=== PATIENT | female | born 1960 | race Caucasian/White ===

== ENCOUNTER 2016-09-26 07:54 | Day surgery (SDC) | payer OTHER ==
[2016-09-24 09:11] LABS: BLOOD UREA NITROGEN 24 mg/dL (7-18)
[~2016-09-26] VITALS: Ht 172.7 cm; Wt 72.0 kg
[~2016-09-26 07:54] MED LIST: GABA100C8 PO
[2016-09-26 08:17] VITALS: BP 113/74
[2016-09-26] MEDS ORDERED: LACTATED RINGERS 1,000 ML IV SCH (08:22)
[2016-09-26] MEDS ORDERED: FENTANYL PF 250 MCG/5ML ONE (09:44)
[2016-09-26] MEDS ORDERED: MIDAZOLAM 1 MG/ML, 2ML ONE (09:44)
[2016-09-26] MEDS ORDERED: BUPIVACAINE/PF-EPI 0.5% 1:200K ONE (10:03)
[2016-09-26] MEDS ORDERED: THROMBIN 5,000 UNIT VIAL TP ONE (10:04)
[2016-09-26] MEDS ORDERED: BACITRACIN 50,000 UNIT ONE (10:04)
[2016-09-26] MEDS ORDERED: ROCURONIUM 10 MG/ML ONE ×2 (10:24)
[2016-09-26] MEDS ORDERED: DEXAMETHASONE 4 MG/ML, 5ML ONE (10:24)
[2016-09-26] MEDS ORDERED: PROPOFOL 10 MG/ML, 20ML ONE (10:24)
[2016-09-26] MEDS ORDERED: GLYCOPYRROLATE 0.2MG/1ML ONE (10:24)
[2016-09-26] MEDS ORDERED: CEFAZOLIN 1,000 MG ONE (10:24)
[2016-09-26] MEDS ORDERED: SUCCINYLCHOLINE 20 MG/ML, 10ML ONE (10:24)
[2016-09-26] MEDS ORDERED: NEOSTIGMINE 1 MG/ML, 10ML ONE (10:24)
[2016-09-26] MEDS ORDERED: ONDANSETRON 2MG/ML, 2ML ONE (10:24)
[2016-09-26] MEDS ORDERED: MEPERIDINE/PF 25MG/0.5ML IVPush PRN (11:30)
[2016-09-26] MEDS ORDERED: ONDANSETRON 2MG/ML, 2ML IVPush PRN (11:30)
[2016-09-26] MEDS ORDERED: MIDAZOLAM 1 MG/ML, 2ML IV PRN (11:30)
[2016-09-26] MEDS ORDERED: PROMETHAZINE 25 MG/ML, 1ML IV PRN (11:30)
[2016-09-26] MEDS ORDERED: OXYcodone 5 MG/5 ML ORAL.SOL UDC PO PRN (11:30)
[2016-09-26] MEDS ORDERED: EPHEDRINE 50 MG/ML, 1ML IVPush PRN (11:30)
[2016-09-26] MEDS ORDERED: ACETAMINOPHEN 325 MG TABLET PO PRN (11:30)
[2016-09-26] MEDS ORDERED: ALBUTEROL SULFATE 2.5 MG/3 ML NPPB PRN (11:30)
[2016-09-26] MEDS ORDERED: METOPROLOL 1 MG/ML, 5ML IV PRN (11:30)
[2016-09-26] MEDS ORDERED: hydrALAzine 20 MG/ML, 1ML IV PRN (11:30)
[2016-09-26] MEDS ORDERED: LABETALOL 5MG/ML, 20ML IV PRN (11:30)
[2016-09-26] MEDS ORDERED: FENTANYL PF 100 MCG/2ML ONE ×2 (12:14→12:46)
[2016-09-26] MEDS ORDERED: OXYcodone 5 MG/5 ML ORAL.SOL UDC ONE (12:14)
[2016-09-26] MEDS: FENTANYL PF 100 MCG/2ML IV PRN ×2 (12:17→12:28)
[2016-09-26] MEDS ORDERED: HYDROmorphone 2 MG/ML, 1ML ONE (12:18)
[2016-09-26] MEDS: HYDROmorphone 1 MG/ML, 1ML IV PRN ×2 (12:21→12:34)
[2016-09-26] MEDS ORDERED: OXYcodone/APAP 10/325MG TABLET ONE (16:42)
[2016-09-26] MEDS ORDERED: OXYcodone/APAP 10/325MG TABLET PO PRN (17:00)
== END 2016-09-26 16:50 | disposition home or self-care (01) ==
LOC: OUT 07:54
PROVIDERS: ATTEND Neurological Surgery
DX: M51.17 Intervertebral disc disorders with radiculopathy, lumbosacral region (principal); M48.06 Spinal stenosis, lumbar region
CPT/HCPCS: 36415; 63030; 63056; 72100; 80048; 85025; 85610; 85730; 93005; J0330; J0690; J1100; J1170; J2250; J2405; J2704; J2710; J3010; J7120; J3490

== ENCOUNTER → 2016-11-07 | Outpatient (CLI) | payer OTHER ==
[~2016-11-07] MED LIST changes: +GABA-826 PO; -GABA100C8 PO; +GADOBUTROL 7.5 MMOL/7.5 ML PFS ONE
== END | disposition home or self-care (01) ==
LOC: CFH 15:01
PROVIDERS: ATTEND Neurological Surgery
DX: M47.896 Other spondylosis, lumbar region (principal); M48.07 Spinal stenosis, lumbosacral region; G96.19 Other disorders of meninges, not elsewhere classified; M79.605 Pain in left leg; R20.0 Anesthesia of skin
CPT/HCPCS: 72158; A9585

== ENCOUNTER → 2017-10-21 | Outpatient (CLI) | payer OTHER | END | disposition home or self-care (01) | LOC: CFH 13:57 | PROVIDERS: ATTEND Neurological Surgery | DX: M51.36 Other intervertebral disc degeneration, lumbar region (principal); M51.26 Other intervertebral disc displacement, lumbar region | CPT/HCPCS: 72110; 72158; A9585 ==

== ENCOUNTER → 2017-11-20 | Outpatient (CLI) | payer OTHER ==
[~2017-11-20] MED LIST changes: +BIOT10005 PEG; +BIOT1TAB12 PO; +CHOL10002 PO; -GADOBUTROL 7.5 MMOL/7.5 ML PFS ONE; +NAPR220C2 PO; +[UNRECOGNIZED DRUG - OTHER] PO
[2017-11-20 10:31] LABS: BASOPHILS # (AUTO) 0.04 x10^3/uL (0-0.1); BASOPHILS % (AUTO) 1 % (0-1); EOSINOPHILS # (AUTO) 0.51 x10^3/uL (0-0.4); EOSINOPHILS % (AUTO) 6 % (1-7); LYMPHOCYTES # (AUTO) 1.95 x10^3/uL (1-3.4); LYMPHOCYTES % (AUTO) 24 % (22-44); MD NO; MEAN CORPUSCULAR HEMOGLOBIN 29.7 pg (27.0-34.8); MEAN CORPUSCULAR HGB CONC 33.3 g/dL (32.4-35.8); MEAN CORPUSCULAR VOLUME 89.2 fL (80-100); MEAN PLATELET VOLUME 7.9 fL (7.4-10.4); MONOCYTES # (AUTO) 0.62 x10^3/uL (0.2-0.8); MONOCYTES % (AUTO) 8 % (2-9); NEUTROPHILS # (AUTO) 4.89 x10^3/uL (1.8-6.8); NEUTROPHILS % (AUTO) 61 % (42-75); PLATELET COUNT 261 x10^3/uL (130-400); RED BLOOD COUNT 4.38 x10^6/uL (3.82-5.3); RED CELL DISTRIBUTION WIDTH 13.7 % (9.6-15.2)
[2017-11-20 10:40] LABS: INTERNATIONAL NORMALIZED RATIO 0.96 (0.93-1.1)
[2017-11-20 10:41] LABS: ANION GAP 4 mmol/L (5-15); CALCIUM 9.6 mg/dL (8.5-10.1); CHLORIDE 107 mmol/L (98-107)
== END | disposition home or self-care (01) ==
LOC: STAR 09:40
PROVIDERS: ATTEND Neurological Surgery
DX: Z01.818 Encounter for other preprocedural examination (principal); M48.062 Spinal stenosis, lumbar region with neurogenic claudication; R00.1 Bradycardia, unspecified
CPT/HCPCS: 36415; 71046; 80048; 85025; 85610; 85730; 93005

== ENCOUNTER 2017-12-08 05:40 | Inpatient (IN) | payer OTHER ==
[~2017-12-08] VITALS: Ht 172.7 cm; Wt 73.8 kg
[2017-12-08] MEDS ORDERED: LACTATED RINGERS 1,000 ML IV SCH (06:32)
[2017-12-08] MEDS ORDERED: BACITRACIN 50,000 UNIT ONE (06:58)
[2017-12-08] MEDS ORDERED: THROMBIN 5,000 UNIT VIAL TP ONE (06:58)
[2017-12-08] MEDS ORDERED: VANCOMYCIN 500 MG ONE (06:58)
[2017-12-08] MEDS ORDERED: BUPIVACAINE/PF-EPI 0.5% 1:200K ONE (06:58)
[2017-12-08] MEDS ORDERED: MIDAZOLAM 1 MG/ML, 2ML ONE (07:12)
[2017-12-08] MEDS ORDERED: FENTANYL PF 100 MCG/2ML ONE ×2 (07:12→10:25)
[2017-12-08] MEDS ORDERED: GLYCOPYRROLATE 0.2MG/1ML, 5ML ONE (07:25)
[2017-12-08] MEDS ORDERED: SUCCINYLCHOLINE 20 MG/ML, 10ML ONE (07:25)
[2017-12-08] MEDS ORDERED: PROPOFOL 10 MG/ML, 20ML ONE (07:25)
[2017-12-08] MEDS ORDERED: CEFAZOLIN 1,000 MG ONE (07:25)
[2017-12-08] MEDS ORDERED: NEOSTIGMINE 1 MG/ML, 10ML ONE (07:25)
[2017-12-08] MEDS ORDERED: DEXAMETHASONE 4 MG/ML, 1ML ONE (07:25)
[2017-12-08] MEDS ORDERED: ROCURONIUM 10MG/ML,5ML ONE (07:25)
[2017-12-08] MEDS ORDERED: ACETAMINOPHEN 500 MG TABLET PO ONE (07:30)
[2017-12-08] MEDS ORDERED: GABAPENTIN 300 MG CAPSULE PO ONE (07:30)
[2017-12-08] MEDS ORDERED: OXYcodone IR 5MG TABLET PO ONE (07:30)
[2017-12-08] MEDS ORDERED: DIAZEPAM 5 MG TABLET PO ONE (07:30)
[2017-12-08] MEDS ORDERED: SCOPOLAMINE PATCH, 1.5MG PATCH.TD72 TD ONE (07:30)
[2017-12-08] MEDS ORDERED: FAMOTIDINE 20 MG TABLET PO ONE (07:30)
[2017-12-08] MEDS ORDERED: ONDANSETRON 2MG/ML, 2ML IVPush ONE (07:30)
[2017-12-08] MEDS ORDERED: LABETALOL 5MG/ML, 20ML IV PRN (08:30)
[2017-12-08] MEDS ORDERED: OXYcodone 5 MG/5 ML ORAL.SOL UDC PO PRN (08:30)
[2017-12-08] MEDS ORDERED: HYDROcodone/APAP 7.5-325MG/15ML UDC PO PRN (08:30)
[2017-12-08] MEDS ORDERED: hydrALAzine 20 MG/ML, 1ML IV PRN (08:30)
[2017-12-08] MEDS ORDERED: ALBUTEROL SULFATE 2.5 MG/3 ML NPPB PRN (08:30)
[2017-12-08] MEDS ORDERED: EPHEDRINE 50 MG/ML, 1ML IVPush PRN (08:30)
[2017-12-08] MEDS ORDERED: ONDANSETRON 2MG/ML, 2ML IV PRN ×2 (08:30→13:00)
[2017-12-08] MEDS ORDERED: MIDAZOLAM 1 MG/ML, 2ML IV PRN (08:30)
[2017-12-08] MEDS ORDERED: PROMETHAZINE 25 MG/ML, 1ML IV PRN (08:30)
[2017-12-08] MEDS ORDERED: MEPERIDINE/PF 25MG/0.5ML IVPush PRN (08:30)
[2017-12-08] MEDS ORDERED: HYDROmorphone 2 MG/ML, 1ML ONE (10:25)
[2017-12-08] MEDS: FENTANYL PF 100 MCG/2ML IV PRN ×3 (10:27→10:40)
[2017-12-08] MEDS: HYDROmorphone 1 MG/ML, 1ML IV PRN ×2 (10:55→11:15)
[2017-12-08] MEDS ORDERED: OXYcodone 5 MG/5 ML ORAL.SOL UDC ONE (11:03)
[2017-12-08] MEDS ORDERED: DIAZEPAM 5 MG/ML, 2ML IVPush PRN (11:30)
[2017-12-08 12:00] VITALS: BP 107/69
[2017-12-08 12:15] VITALS: BP 115/70
[2017-12-08] MEDS ORDERED: DIAZEPAM 5 MG TABLET ONE (12:56)
[2017-12-08] MEDS ORDERED: PROMETHAZINE 25 MG/ML, 1ML IM PRN (13:00)
[2017-12-08] MEDS ORDERED: DIAZEPAM 5 MG/ML, 2ML IV PRN (13:00)
[2017-12-08] MEDS ORDERED: METHOCARBAMOL 750 MG TABLET PO PRN (13:00)
[2017-12-08] MEDS ORDERED: ACETAMINOPHEN 650 MG SUPP PR PRN (13:00)
[2017-12-08] MEDS ORDERED: DIPHENHYDRAMINE 50 MG CAPSULE PO PRN (13:00)
[2017-12-08] MEDS ORDERED: ACETAMINOPHEN 325 MG TABLET PO PRN (13:00)
[2017-12-08] MEDS ORDERED: BISACODYL 10 MG SUPP PR PRN (13:00)
[2017-12-08] MEDS ORDERED: MAGNESIUM HYDROXIDE 8%, 30ML UDC PO PRN (13:00)
[2017-12-08] MEDS ORDERED: HYDROmorphone 2 MG/ML, 1ML IM PRN (13:00)
[2017-12-08] MEDS ORDERED: HYDROmorphone 2MG TABLET PO PRN (13:00)
[2017-12-08] MEDS ORDERED: DIPHENHYDRAMINE 50 MG/ML, 1ML IVPush PRN (13:00)
[2017-12-08] MEDS ORDERED: DIPHENHYDRAMINE 50 MG/ML, 1ML IM PRN (13:00)
[2017-12-08] MEDS ORDERED: OXYcodone/APAP 5/325MG TABLET PO PRN (13:00)
[2017-12-08] MEDS: DIAZEPAM 5 MG TABLET PO PRN ×2 (13:13→23:07)
[2017-12-08] MEDS: CEFAZOLIN PMX 1GM/50ML 50 ML IVPB SCH (15:58)
[2017-12-08] MEDS: NS + 20MEQ KCL 1,000 ML IV SCH (15:58)
[2017-12-08 19:00] VITALS: BP 139/93
[2017-12-08] MEDS ORDERED: ZOLPIDEM 5MG TABLET PO PRN (21:00)
[2017-12-08 23:42] VITALS: BP 107/66
[2017-12-09] MEDS: CEFAZOLIN PMX 1GM/50ML 50 ML IVPB SCH (00:04)
[2017-12-09] MEDS: NS + 20MEQ KCL 1,000 ML IV SCH ×2 (01:30→13:23)
[2017-12-09 03:21] VITALS: BP 100/64
[2017-12-09 05:46] LABS: BASOPHILS # (AUTO) 0.03 x10^3/uL (0-0.1); BASOPHILS % (AUTO) 0 % (0-1); EOSINOPHILS # (AUTO) 0.05 x10^3/uL (0-0.4); EOSINOPHILS % (AUTO) 1 % (1-7); LYMPHOCYTES # (AUTO) 2.06 x10^3/uL (1-3.4); LYMPHOCYTES % (AUTO) 18 % (22-44); MD NO; MEAN CORPUSCULAR HEMOGLOBIN 29.7 pg (27.0-34.8); MEAN CORPUSCULAR HGB CONC 33.2 g/dL (32.4-35.8); MEAN CORPUSCULAR VOLUME 89.5 fL (80-100); MEAN PLATELET VOLUME 7.8 fL (7.4-10.4); MONOCYTES # (AUTO) 0.96 x10^3/uL (0.2-0.8); MONOCYTES % (AUTO) 8 % (2-9); NEUTROPHILS # (AUTO) 8.64 x10^3/uL (1.8-6.8); NEUTROPHILS % (AUTO) 74 % (42-75); PLATELET COUNT 213 x10^3/uL (130-400); RED CELL DISTRIBUTION WIDTH 13.8 % (9.6-15.2)
[2017-12-09 06:19] LABS: ANION GAP 4 mmol/L (5-15); CALCIUM 8.6 mg/dL (8.5-10.1); CHLORIDE 107 mmol/L (98-107); CREATININE 0.71 mg/dL (0.55-1.02)
[2017-12-09 06:38] VITALS: BP 99/65
[2017-12-09] MEDS ORDERED: METH750T87 PO ×2 (08:16→17:29)
[2017-12-09] MEDS ORDERED: SENNA/DOCUSATE TABLET PO SCH (09:00)
[2017-12-09] MEDS ORDERED: CHOLECALCIFEROL 1,000 UNIT TABLET PO SCH (09:00)
[2017-12-09] MEDS: OXYcodone/APAP 10/325MG TABLET PO PRN ×2 (10:45→15:13)
[2017-12-09 11:59] VITALS: BP 106/75
[2017-12-09] MEDS ORDERED: OXYC-307 PO (17:26)
[2017-12-09 17:55] VITALS: BP 97/55
== END 2017-12-09 18:45 | disposition home or self-care (01) | DRG 460 ==
LOC: ORIP 05:40 → 4NOR 11:55
PROVIDERS: ADMIT Neurological Surgery; ATTEND Neurological Surgery
PROC: 01NB0ZZ Release Lumbar Nerve, Open Approach (ICD-10-PCS; 2017-12-08)
PROC: 0SB20ZZ Excision of Lumbar Vertebral Disc, Open Approach (ICD-10-PCS; 2017-12-08)
PROC: 01NR0ZZ Release Sacral Nerve, Open Approach (ICD-10-PCS; 2017-12-08)
PROC: 0SG30AJ Fusion of Lumbosacral Joint with Interbody Fusion Device, Posterior Approach, Anterior Column, Open Approach (ICD-10-PCS; principal; 2017-12-08 07:30)
DX: M48.07 Spinal stenosis, lumbosacral region (principal); M54.17 Radiculopathy, lumbosacral region
CPT/HCPCS: 36415; 72100; J3490; 80048; 85025; C1713; J0690; J1100; J1170; J2250; J2270; J2405; J2704; J2710; J3010; J3360; J3370; J3480; C1762; J0330; J7120

== ENCOUNTER → 2018-07-29 | Outpatient (CLI) | payer OTHER ==
[~2018-07-29] MED LIST changes: +METH750T87 PO; +OXYC-307 PO
== END | disposition home or self-care (01) ==
LOC: CFH 13:59
PROVIDERS: ATTEND Internal Medicine
DX: Z12.31 Encounter for screening mammogram for malignant neoplasm of breast (principal)
CPT/HCPCS: 77067

== ENCOUNTER → 2018-10-05 | Outpatient (CLI) | payer OTHER ==
[~2018-10-05] MED LIST changes: +FAMO-79 PO
[2018-10-05 09:43] LABS: CHOL/HDL RATIO 3.3; LDL/HDL RATIO 2.1 (0.5-3.0)
== END | disposition home or self-care (01) ==
LOC: LAB 09:15
PROVIDERS: ATTEND Internal Medicine
DX: K21.9 Gastro-esophageal reflux disease without esophagitis (principal)
CPT/HCPCS: 36415; 80053; 80061; 81003; 85025; 87081

== ENCOUNTER → 2018-10-05 | Outpatient (CLI) | payer OTHER | END | disposition home or self-care (01) | LOC: STAR 08:19 | PROVIDERS: ATTEND Orthopaedic Surgery Adult Reconstructive Orthopaedic Surgery | DX: Z01.818 Encounter for other preprocedural examination (principal); M25.552 Pain in left hip; M16.11 Unilateral primary osteoarthritis, right hip | CPT/HCPCS: 36415; 87806; 93005; G0475 ==

== ENCOUNTER 2018-10-22 10:29 | Inpatient (IN) | payer OTHER ==
[~2018-10-22] VITALS: Ht 172.7 cm; Wt 77.1 kg
[~2018-10-22 10:29] MED LIST changes: +EPINEPHRINE 1 MG/ML, 1ML ONE; +KETOROLAC 60 MG/2 ML ONE; +ROPIvacaine/PF 0.5%, 30 ML ONE; +SODIUM CHLORIDE 0.9% 50 ML ONE; +TRANEXAMIC ACID 100 MG/ML, 10ML ONE; +VANCOMYCIN 1,000 MG ONE
[2018-10-22] MEDS ORDERED: LACTATED RINGERS 1,000 ML IV SCH (11:03)
[2018-10-22 11:12] VITALS: BP 125/79
[2018-10-22] MEDS ORDERED: GABAPENTIN 300 MG CAPSULE PO ONE (11:30)
[2018-10-22] MEDS ORDERED: ACETAMINOPHEN 500 MG TABLET PO ONE (11:30)
[2018-10-22] MEDS ORDERED: MIDAZOLAM 1 MG/ML, 2ML ONE (11:56)
[2018-10-22] MEDS ORDERED: FENTANYL PF 250 MCG/5ML ONE (11:56)
[2018-10-22] MEDS ORDERED: MAGNESIUM HYDROXIDE 8%, 30ML UDC PO PRN (12:30)
[2018-10-22] MEDS ORDERED: HYDROcodone/APAP 5/325 TABLET PO PRN (12:30)
[2018-10-22] MEDS ORDERED: DIPHENHYDRAMINE 50 MG CAPSULE PO PRN (12:30)
[2018-10-22] MEDS ORDERED: SCOPOLAMINE PATCH, 1.5MG PATCH.TD72 TD ONE (12:30)
[2018-10-22] MEDS ORDERED: ZOLPIDEM 5MG TABLET PO PRN (12:30)
[2018-10-22] MEDS ORDERED: SENNA/DOCUSATE TABLET PO PRN (12:30)
[2018-10-22] MEDS ORDERED: ONDANSETRON 2MG/ML, 2ML IV PRN ×2 (12:30→14:00)
[2018-10-22] MEDS ORDERED: ONDANSETRON 4 MG TABLET PO PRN (12:30)
[2018-10-22] MEDS ORDERED: BISACODYL 10 MG SUPP PR PRN (12:30)
[2018-10-22] MEDS ORDERED: PROPOFOL 50 ML ONE ×2 (12:54→14:43)
[2018-10-22] MEDS ORDERED: EPHEDRINE 50 MG/ML, 1ML ONE (13:19)
[2018-10-22] MEDS ORDERED: VANCOMYCIN 1,000 MG ONE (13:49)
[2018-10-22] MEDS ORDERED: PROMETHAZINE 25 MG/ML, 1ML IV PRN (14:00)
[2018-10-22] MEDS ORDERED: SCOPOLAMINE PATCH, 1.5MG PATCH.TD72 TD PRN (14:00)
[2018-10-22] MEDS ORDERED: METOPROLOL 1 MG/ML, 5ML IV PRN (14:00)
[2018-10-22] MEDS ORDERED: hydrALAzine 20 MG/ML, 1ML IV PRN (14:00)
[2018-10-22] MEDS ORDERED: MEPERIDINE/PF 25MG/0.5ML IVPush PRN (14:00)
[2018-10-22] MEDS ORDERED: DIAZEPAM 5 MG/ML, 2ML IVPush PRN (14:00)
[2018-10-22] MEDS ORDERED: ALBUTEROL/IPRATROPIUM 2.5MG/0.5MG, 3 ML NPPB PRN (14:00)
[2018-10-22] MEDS ORDERED: OXYcodone 5 MG/5 ML ORAL.SOL UDC PO PRN (14:00)
[2018-10-22] MEDS ORDERED: MIDAZOLAM 1 MG/ML, 2ML IV PRN (14:00)
[2018-10-22] MEDS ORDERED: NEOSTIGMINE 1 MG/ML, 10ML ONE (14:10)
[2018-10-22] MEDS ORDERED: GLYCOPYRROLATE 0.2MG/1ML, 5ML ONE (14:10)
[2018-10-22] MEDS ORDERED: CEFAZOLIN 1,000 MG ONE (14:10)
[2018-10-22] MEDS ORDERED: PROPOFOL 10 MG/ML, 20ML ONE (14:10)
[2018-10-22] MEDS ORDERED: ONDANSETRON 2MG/ML, 2ML ONE (14:10)
[2018-10-22] MEDS ORDERED: ROCURONIUM 10MG/ML,5ML ONE (14:10)
[2018-10-22] MEDS ORDERED: DEXAMETHASONE 4 MG/ML, 1ML ONE (14:10)
[2018-10-22] MEDS ORDERED: HYDROmorphone 2 MG/ML, 1ML ONE (15:32)
[2018-10-22] MEDS ORDERED: FENTANYL PF 100 MCG/2ML ONE (15:32)
[2018-10-22] MEDS: FENTANYL PF 100 MCG/2ML IV PRN ×2 (15:32→15:56)
[2018-10-22] MEDS: HYDROmorphone 2 MG/ML, 1ML IVPush PRN ×2 (15:40→15:50)
[2018-10-22] MEDS ORDERED: TRANEXAMIC ACID 1,000 MG in SODIUM CHLORIDE 0.9% 100 ML IVPB ONE (16:30)
[2018-10-22] MEDS ORDERED: TRANEXAMIC ACID 100 MG/ML, 10ML IVPB SCH (16:30)
[2018-10-22 17:50] LABS: HEMOGLOBIN A1C 5.7 % (4.2-6.3)
[2018-10-22] MEDS: ASPIRIN 81 MG TABLET EC PO SCH (18:23)
[2018-10-22] MEDS: NS + 20MEQ KCL 1,000 ML IV SCH (18:23)
[2018-10-22 19:50] VITALS: BP 107/71
[2018-10-22 20:14] VITALS: BP 119/67
[2018-10-22] MEDS: DOCUSATE 100 MG CAPSULE PO SCH (21:06)
[2018-10-22] MEDS ORDERED: CEFAZOLIN PMX 2GM/50ML 50 ML IVPB SCH (22:00)
[2018-10-22] MEDS: CEFAZOLIN PMX 2GM/100ML 100 ML IVPB SCH (22:06)
[2018-10-22] MEDS: ACETAMINOPHEN 650 MG/20.3 ML UDC PO PRN (23:28)
[2018-10-22] MEDS: OXYcodone IR 5MG TABLET PO PRN (23:28)
[2018-10-23 03:40] VITALS: BP 99/62
[2018-10-23] MEDS: ACETAMINOPHEN 650 MG/20.3 ML UDC PO PRN ×2 (04:14→08:10)
[2018-10-23] MEDS: OXYcodone IR 5MG TABLET PO PRN ×2 (04:15→08:10)
[2018-10-23] MEDS: ASPIRIN 81 MG TABLET EC PO SCH (05:50)
[2018-10-23] MEDS: CEFAZOLIN PMX 2GM/100ML 100 ML IVPB SCH (05:50)
[2018-10-23] MEDS ORDERED: DEXAMETHASONE 4 MG/ML, 1ML IVPush SCH (06:00)
[2018-10-23 07:30] VITALS: BP 90/60
[2018-10-23] MEDS: NS + 20MEQ KCL 1,000 ML IV SCH (08:00)
[2018-10-23] MEDS: DOCUSATE 100 MG CAPSULE PO SCH (08:10)
[2018-10-23 08:39] VITALS: BP 95/58
[2018-10-23] MEDS ORDERED: FAMOTIDINE 20 MG TABLET PO SCH (09:00)
[2018-10-23] MEDS ORDERED: OXYC5TAB3 PO (09:47)
[2018-10-23] MEDS ORDERED: MELO7.5T31 PO (09:48)
[2018-10-23] MEDS ORDERED: TRAM50TA2 PO (09:51)
== END 2018-10-23 10:25 | disposition home or self-care (01) | DRG 462 ==
LOC: ORIP 10:29 → 4NOR 16:36 → DCLOUNGE 10-23 10:15
PROVIDERS: ADMIT Orthopaedic Surgery; ATTEND Orthopaedic Surgery
PROC: 0SR906A Replacement of Right Hip Joint with Oxidized Zirconium on Polyethylene Synthetic Substitute, Uncemented, Open Approach (ICD-10-PCS; 2018-10-22)
PROC: 0SRB06A Replacement of Left Hip Joint with Oxidized Zirconium on Polyethylene Synthetic Substitute, Uncemented, Open Approach (ICD-10-PCS; principal; 2018-10-22 13:45)
DX: M16.0 Bilateral primary osteoarthritis of hip (principal); K21.9 Gastro-esophageal reflux disease without esophagitis; Z98.1 Arthrodesis status
CPT/HCPCS: 36415; 72170; 73523; 76000; 83036; 85014; 85018; C1713; G0378; J0171; J0690; J1100; J1170; J1885; J2250; J2405; J2704; J2710; J2795; J3010; J3370; J3480; C1776; J7120

== ENCOUNTER → 2020-01-16 | Outpatient (CLI) | payer OTHER ==
[~2020-01-16] MED LIST changes: -EPINEPHRINE 1 MG/ML, 1ML ONE; -KETOROLAC 60 MG/2 ML ONE; +MELO7.5T31 PO; +OXYC5TAB3 PO; -ROPIvacaine/PF 0.5%, 30 ML ONE; -SODIUM CHLORIDE 0.9% 50 ML ONE; +TRAM50TA2 PO; -TRANEXAMIC ACID 100 MG/ML, 10ML ONE; -VANCOMYCIN 1,000 MG ONE
== END | disposition home or self-care (01) ==
LOC: RAD 15:20
PROVIDERS: ATTEND Internal Medicine Cardiovascular Disease
DX: S42.402A Unspecified fracture of lower end of left humerus, initial encounter for closed fracture (principal); M79.89 Other specified soft tissue disorders; X58.XXXA Exposure to other specified factors, initial encounter; Y93.89 Activity, other specified; Y92.89 Other specified places as the place of occurrence of the external cause; Y99.8 Other external cause status